=== PATIENT | female | born 1980 | race Caucasian/White ===

== ENCOUNTER 2019-01-21 09:36 | Emergency (ER) | payer MEDICAID, OTHER ==
[~2019-01-21] VITALS: Wt 72.0 kg
[2019-01-21 09:43] VITALS: BP 140/84; PULSE 84; RESP 18
[2019-01-21] MEDS ORDERED: IBUPROFEN 600 MG TAB PO ONE (10:24)
[2019-01-21] MEDS ORDERED: OXYC-279 PO (11:26)
--- NOTE | 2019-01-21 14:04 | ERD ---
ER Documentation Chief Complaint Chief Complaint LEFT FOOT PAIN, POSSIBLFB X 6 MOS? HPI This is a 38-year-old woman complaining of pain to the bottom of the left foot, she suspects she stepped on glass a few months ago and states she has intermittent sharp, electric shock type pain going from her left foot up to the left leg times a few months. She denies bleeding, redness, swelling to the foot but does have pain with ambulation. ROS All systems reviewed and are negative except as per history of present illness. Medications Home Meds Active Scripts Oxycodone HCl/Acetaminophen (Percocet 5-325 mg Tablet) 1 Each Tablet, 1 EACH PO TID PRN for PAIN LEVEL 6-10, #9 TAB Prov:MALOU AGUAYO MD 01/21/19 Allergies Allergies: Coded Allergies: sertraline (Verified Allergy, Mild, STIFF NECK, 09/21/11) PMhx/Soc History of Surgery: No Anesthesia Reaction: No Hx Neurological Disorder: No Hx Respiratory Disorders: No Hx Cardiac Disorders: No Hx Psychiatric Problems: No Hx Miscellaneous Medical Probl: No Hx Alcohol Use: No Hx Substance Use: No Hx Tobacco Use: No Physical Exam Vitals Vital Signs Date Temp Pulse Resp B/P (MAP) Pulse Ox O2 O2 Flow FiO2 Time Delivery Rate 01/21/19 97.8 84 18 140/84 99 09:43 (102) Physical Exam Const: No acute distress Resp: Clear to auscultation bilaterally Cardio: Regular rate and rhythm, no murmurs Abd: Soft, non tender, non distended. Normal bowel sounds Skin: There is a less than 1 cm circular superficial puncture wound to the sole of the left midfoot without active bleeding, granulation tissue present, no skin induration or erythema Back: No midline or flank tenderness Ext: No cyanosis, or edema Neur: Awake and alert x3, no focal deficits or facial asymmetry Psych: Normal Mood and Affect Results 24 hrs Current Medications Medications Dose Sig/Fermín Start Time Status Last (Trade) Ordered Route PRN Stop Time Admin Dose Reason Admin Ibuprofen 600 mg ONCE ONCE 01/21/19 DC 01/21/19 (Motrin) PO 10:24 01/21/19 10:27 10:25 Procedures/MDM I administered ibuprofen 600 mg p.o. x1. X-ray left foot 3V Interpreted by me: Bones: No fracture Joints: No dislocation Foreign body: None Patient feels much better at this time, and vital signs are normal, symptoms have improved. I did give strict instructions to return to the ED if symptoms continue or worsen, patient will otherwise follow-up with primary care physician. Patient understood instructions and agreed to plan. Disclaimer: Inadvertent spelling and grammatical errors are likely due to EHR/dictation software use and do not reflect on the overall quality of patient care. Also, please note that the electronic time recorded on this note does not necessarily reflect the actual time of the patient encounter. Departure Diagnosis: Primary Impression: Foot pain Laterality: left Qualified Codes: M79.672 - Pain in left foot Additional Impression: Puncture wound Condition: Good Patient Instructions: Neuropathy, Peripheral, Puncture Wound, Foot Referrals: LIO CASTELLANOS MD (PCP) MALOU AGUAYO MD January 21, 2019 14:04
== END 2019-01-21 11:40 | disposition home or self-care (01) ==
LOC: FTE 09:36
DX: S91.332A Puncture wound without foreign body, left foot, initial encounter (principal); W25.XXXA Contact with sharp glass, initial encounter; Y92.9 Unspecified place or not applicable
CPT/HCPCS: 73630; Z7502; Z7610

== ENCOUNTER 2019-05-04 16:49 | Emergency (ER) | payer BC, MEDICAID ==
[~2019-05-04] VITALS: Ht 149.9 cm; Wt 65.8 kg
[~2019-05-04 16:49] MED LIST: OXYC-279 PO
[2019-05-04 16:52] VITALS: Ht 149.9 cm; Wt 65.8 kg
[2019-05-04 20:44] VITALS: BP 133/76; PULSE 72; RESP 17
== END 2019-05-04 20:45 | disposition home or self-care (01) ==
LOC: E/R 16:49
DX: R00.2 Palpitations (principal); R20.2 Paresthesia of skin
CPT/HCPCS: 36415; 71045; 80048; 81025; 84484; 85025; 93005